=== PATIENT | female | born 1950 | race Caucasian/White ===

== ENCOUNTER → 2021-07-20 01:31 | Outpatient (CLI) | payer MEDICARE, SELFPAY ==
[2021-07-20 21:10] LABS: SARS-CoV-2 RNA PCR Positive
== END ==
PROVIDERS: PCP Internal Medicine; Visit Provider Nurse Practitioner Family
DX: U07.1 COVID-19 (principal); J02.9 Acute pharyngitis, unspecified; R05.9 Cough, unspecified
CPT/HCPCS: C9803; U0003; U0005

== ENCOUNTER 2023-10-26 12:11 | Emergency (ER) | payer MEDICARE, SELFPAY ==
--- NOTE | ~2023-10-26 | XR_ITS ---
XR abdomen/kub 1V 10/26/2023 13:46 Indication: Left flank pain Procedure: KUB Comparison: No prior studies for comparison. Findings: Bowel gas pattern is nonobstructive. Moderate colonic fecal loading. There is an IVC filter present. There is a round radiodensity on the right mid abdomen lateral to L3, possibly external to the patient. Lung bases unremarkable. Moderate lumbar spondylosis. Impression: 1: Nonobstructive bowel gas pattern. Reviewed, dictated and finalized at location B. Impression: 1: Nonobstructive bowel gas pattern.
[2023-10-26 12:39] VITALS: BP 107/61; PULSE 69; RESP 18; TEMP 36.6; O2SAT 100
--- NOTE | 2023-10-26 13:22 | ED.FEMALEGU ---
HPI - Female Genitourinary General Chief complaint: Urogenital-Female Stated complaint: Chills/UTI Time Seen by Provider: 10/26/23 13:22 Source: patient Mode of arrival: ambulatory Limitations: no limitations History of Present Illness HPI Narrative: 73-year-old female presents with complaint of low back pain for approximately 4-5 days. States back pain has been intermittent. Last night began having chills, dysuria, frequency. Afebrile. Patient nauseated, has not been able to drink fluids due to nausea but is able to eat ice. No history of kidney stones. All systems reviewed and negative except as noted above. Related Data Home Medications Medication Instructions Recorded Confirmed escitalopram oxalate 10 mg tablet 10 mg PO DAILY 10/26/23 10/26/23 famotidine 20 mg tablet 20 mg PO DIRECTED 10/26/23 10/26/23 folic acid 1 mg tablet 1 mg PO DAILY 10/26/23 10/26/23 gabapentin 300 mg capsule 300 mg PO DIRECTED 10/26/23 10/26/23 hydroxyzine pamoate 25 mg capsule 25 mg PO DIRECTED 10/26/23 10/26/23 sulfamethoxazole 800 1 tablet PO BID 10/26/23 10/26/23 mg-trimethoprim 160 mg tablet tramadol 50 mg tablet 50 mg PO DIRECTED 10/26/23 10/26/23 Allergies Allergy/AdvReac Type Severity Reaction Status Date / Time No Known Allergies Allergy Unverified 06/28/15 12:25 Review of Systems Review of Systems: CONSTITUTIONAL: Denies fever, chills, or sweats. EYES: Denies visual changes, redness, or discharge. ENT: Denies rhinorrhea, congestion, sore throat, or otalgia. CARDIOVASCULAR: Denies chest pain, palpitations, or edema. RESPIRATORY: Denies cough or dyspnea. GASTROINTESTINAL: Denies abdominal pain, nausea, vomiting, or diarrhea. GENITOURINARY: Reports dysuria, frequency. Denies hematuria. SKIN: Denies rash or itching. MUSCULOSKELETAL: reports left-sided low back pain. Denies joint pain, or myalgia. NEUROLOGIC: Denies headache, numbness, or weakness. PSYCHIATRIC: Denies anxiety or depression. All other systems reviewed are negative, except as documented in HPI. [facility] Comments At time of signature, agree with nursing past medical, surgical, social and family history. There is no relevant family history pertinent to the presenting complaint. Exam Narrative: GENERAL: This is a well-nourished, well-developed patient, in no apparent distress. HEAD: normocephalic, atraumatic. EYES: PERRL. Sclera clear/white. Vision is grossly intact. EARS: External ears normal NOSE: External nose normal NECK: Neck supple, non-tender without lymphadenopathy, masses or thyromegaly. CARDIOVASCULAR: Regular rate and rhythm without murmurs, gallops, or rubs. RESPIRATORY: Clear to auscultation. Breath sounds equal bilaterally. No wheezes, rales, or rhonchi. SKIN: warm, Dry, intact with no suspicious lesions or rash, good texture and turgor. NEURO: awake, alert, and oriented to person, place and time. There were no obvious focal neurologic abnormalities. EXTREMITIES: No joint tenderness, effusion, or edema noted. BACK: No CVA tenderness. Course Course Level of Care: Express Care Visit Vital Signs Vital signs: Vital Signs Temperature 36.6 C 10/26/23 12:39 Pulse Rate 69 10/26/23 12:39 Respiratory Rate 18 10/26/23 12:39 Blood Pressure 107/61 10/26/23 12:39 Pulse Oximetry 100 10/26/23 12:39 Oxygen Delivery Room Air 10/26/23 12:39 Temperature 36.6 C 10/26/23 12:39 Pulse Rate 69 10/26/23 12:39 Respiratory Rate 18 10/26/23 12:39 Blood Pressure 107/61 10/26/23 12:39 Pulse Oximetry 100 10/26/23 12:39 Oxygen Delivery Room Air 10/26/23 12:39 reviewed MDM - Female Genitourinary MDM Narrative Medical decision making narrative: Patient is aware of diagnosis, understands and agrees to treatment plan. Anticipatory guidance given. Patient agrees to follow-up as directed and is aware of reasons to seek care at the emergency department. Portions of this record may hav
[2023-10-26] MEDS: cefTRIAXone 1 GM, LIDOCAINE HCL 1% LOCAL INJ 2.1 ML IM (14:06)
== END 2023-10-26 14:28 | disposition home or self-care (01) ==
PROVIDERS: Emergency Provider Nurse Practitioner Family; PCP Internal Medicine
DX: N39.0 Urinary tract infection, site not specified (principal); G62.9 Polyneuropathy, unspecified; F41.9 Anxiety disorder, unspecified
CPT/HCPCS: 74018; 87086; 87088; 96372; 99213; G0463; J0696